=== PATIENT | female | born 1985 | race Caucasian/White ===

== ENCOUNTER 2017-07-15 12:43 | Emergency (ER) | payer SELFPAY, BC ==
[2017-07-15] MEDS ORDERED: KETOROLAC 30 MG INJ IM (13:52)
[2017-07-15] MEDS: KETOROLAC 60 MG INJ IM (15:03)
== END 2017-07-15 16:25 | disposition home or self-care (01) ==
LOC: FTE 12:43
DX: S20.222A Contusion of left back wall of thorax, initial encounter (principal); S20.212A Contusion of left front wall of thorax, initial encounter; W01.0XXA Fall on same level from slipping, tripping and stumbling without subsequent striking against object, initial encounter; Y92.9 Unspecified place or not applicable
CPT/HCPCS: 71046; 72072; 73630; 81025; 96372; 99284-25